=== PATIENT | male | born 1955 | race Two or more races ===

== ENCOUNTER → 2018-08-20 | Outpatient (CLI) | payer BC | END | disposition home or self-care (01) | LOC: SHCH 15:40 | PROVIDERS: ATTEND Internal Medicine Cardiovascular Disease | DX: I25.119 Atherosclerotic heart disease of native coronary artery with unspecified angina pectoris (principal) | CPT/HCPCS: 93306 ==

== ENCOUNTER → 2018-10-02 | Outpatient (CLI) | payer BC | END | disposition home or self-care (01) | LOC: RAH 08:32 | PROVIDERS: ATTEND Internal Medicine Cardiovascular Disease | DX: I25.10 Atherosclerotic heart disease of native coronary artery without angina pectoris (principal); I10 Essential (primary) hypertension | CPT/HCPCS: 78452; 93017; A9500 ×2 ==

== ENCOUNTER 2021-07-27 20:47 | Observation (INO) | payer BC, MEDICARE ==
[~2021-07-27] VITALS: Ht 165.1 cm; Wt 55.8 kg
[~2021-07-27 20:47] MED LIST: ASPI-1197 PO; ATOR40TA69 PO; CLOP75TA14 PO; METO-391 PO; PANT20TA PO
[2021-07-27 21:20] LABS: BASOPHILS % (AUTO) 0.4 % (0.0-5.0); HEMATOCRIT 42.5 % (42-54); LYMPHOCYTES % (AUTO) 27.6 % (21.0-51.0); MEAN CORPUSCULAR HEMOGLOBIN 29.7 pg (27.0-33.0); MEAN CORPUSCULAR HGB CONC 34.1 g/dL (32.0-36.0); MEAN CORPUSCULAR VOLUME 87.1 fL (79-99); NEUTROPHILS % (AUTO) 59.8 % (40.0-77.0); PLATELET COUNT (AUTO) 200 K/uL (130-400); RED BLOOD CELL COUNT(AUTO) 4.88 MIL/uL (4.50-6.20); RED CELL DISTRIBUTION WIDTH 11.9 % (11.0-15.5)
[2021-07-27] MEDS ORDERED: ASPIRIN 81MG CHEW TAB PO ONE (21:30)
[2021-07-27] MEDS ORDERED: NITROGLYCERIN 1GM OINT 1 INCH/1GM TD ONE (21:30)
[2021-07-27 21:32] LABS: PROTHROMBIN TIME 10.9 SEC (9.6-11.6)
[2021-07-27 21:34] LABS: PARTIAL THROMBOPLASTIN TIME 26.1 SEC (26.3-35.5)
[2021-07-27 21:37] LABS: B-TYPE NATRIURETIC PEPTIDE 16 pg/mL (0-100)
[2021-07-27 21:47] LABS: BILIRUBIN,TOTAL 0.7 mg/dL (0.2-1.0); CREATININE 0.9 mg/dL (0.5-1.5); POTASSIUM 4.3 mmol/L (3.5-5.1); TOTAL PROTEIN, SERUM 6.9 g/dL (6.0-8.3)
[2021-07-28] MEDS ORDERED: MAG/ALUM/SIMETH 30 ML UDCUP PO PRN (00:30)
[2021-07-28] MEDS ORDERED: ONDANSETRON 4MG INJ IV PRN (00:30)
[2021-07-28] MEDS ORDERED: LACTATED RINGERS 1000ML 1,000 ML IV SCH (00:30)
[2021-07-28] MEDS ORDERED: NITROGLYCERIN 0.4 MG SL TAB SL PRN (00:30)
[2021-07-28] MEDS ORDERED: LACTATED RINGERS 1000ML 1,000 ML IV ONE (00:49)
[2021-07-28 01:18] LABS: INR 1.01 (0.85-1.15)
[2021-07-28 01:20] LABS: PARTIAL THROMBOPLASTIN TIME 26.1 SEC (26.3-35.5)
[2021-07-28 02:15] VITALS: BP 123/77
[2021-07-28 04:00] VITALS: BP 122/74
[2021-07-28] MEDS ORDERED: SITA1TAB6 PO (06:24)
[2021-07-28 08:00] VITALS: BP 123/71
[2021-07-28] MEDS ORDERED: CLOPIDOGREL 75MG TAB PO SCH (10:00)
[2021-07-28] MEDS: METOPROLOL TARTRATE 25 MG TAB PO SCH ×2 (10:36→20:40)
[2021-07-28] MEDS: FAMOTIDINE 20MG VIAL IV SCH ×2 (10:37→20:40)
[2021-07-28 11:56] VITALS: BP 122/67
[2021-07-28] MEDS: ENOXAPARIN SODIUM 60 MG/0.6 ML SQ SCH ×2 (14:00→16:12)
[2021-07-28] MEDS ORDERED: ENOXAPARIN SODIUM 1 MG/KG SQ SCH (14:00)
[2021-07-28] MEDS ORDERED: ENOXAPARIN SODIUM 120 MG/0.8ML SQ SCH (14:00)
[2021-07-28] MEDS ORDERED: PRASUGREL HCL 10 MG TABLET PO SCH (14:00)
[2021-07-28 16:00] VITALS: BP 99/65
[2021-07-28] MEDS: INSULIN HUMULIN R 100 UNIT/ML 3ML SQ SCH ×2 (18:00→21:18)
[2021-07-28 20:00] VITALS: BP 133/78
[2021-07-29] VITALS (9 sets, daily range): BP systolic 114–141; BP diastolic 60–86
[2021-07-29] MEDS: INSULIN HUMULIN R 100 UNIT/ML 3ML SQ SCH ×3 (06:29→16:30)
[2021-07-29] MEDS ORDERED: ASPIRIN 81MG CHEW TAB PO SCH (07:11)
[2021-07-29] MEDS ORDERED: NITROGLYCERIN 50MG VIAL ONE (07:12)
[2021-07-29] MEDS ORDERED: SODIUM BICARB 50MEQ 50ML VIAL 50 ML ONE (07:12)
[2021-07-29] MEDS ORDERED: MIDAZOLAM HCL 1 MG/ML 2ML VIAL ONE ×2 (07:12→08:15)
[2021-07-29] MEDS ORDERED: IOHEXOL 350 MG/ML 100ML INFUS..BTL IV ONE (07:12)
[2021-07-29] MEDS ORDERED: HEPARIN 10,000 UNIT/10ML (1,000 UNIT/ML) VIAL ONE (07:12)
[2021-07-29] MEDS ORDERED: IOHEXOL-350 50ML VIAL IV ONE (07:12)
[2021-07-29] MEDS ORDERED: ASPIRIN 81MG CHEW TAB ONE (07:13)
[2021-07-29] MEDS ORDERED: MEPERIDINE-PF 25 MG/ML SYG ONE ×2 (07:13→08:15)
[2021-07-29] MEDS ORDERED: LIDOCAINE HCL 400MG/20ML VIAL ONE (07:13)
[2021-07-29] MEDS ORDERED: 0.9%NACL 1000ML 1,000 ML IV SCH (09:00)
[2021-07-29] MEDS ORDERED: ISOSORBIDE MONO 30MG SR TAB PO SCH (09:00)
[2021-07-29] MEDS ORDERED: METOPROLOL TARTRATE 25 MG TAB PO SCH (09:00)
[2021-07-29] MEDS ORDERED: PRASUGREL HCL 10 MG TABLET PO SCH (09:00)
[2021-07-29] MEDS ORDERED: ATORVASTATIN 10 MG TABLET PO SCH (09:00)
[2021-07-29] MEDS ORDERED: DILT180T12 PO (09:22)
[2021-07-29] MEDS ORDERED: METO25 PO (09:22)
[2021-07-29] MEDS ORDERED: PRAS10TA6 PO (09:22)
[2021-07-29] MEDS ORDERED: Isosorbide Mono 30MG Sr Tab PO (09:22)
[2021-07-29 10:52] LABS: HEMATOCRIT 38.6 % (42-54); MEAN CORPUSCULAR HEMOGLOBIN 29.8 pg (27.0-33.0); MEAN CORPUSCULAR HGB CONC 34.2 g/dL (32.0-36.0); MEAN CORPUSCULAR VOLUME 87.1 fL (79-99); RED BLOOD CELL COUNT(AUTO) 4.43 MIL/uL (4.50-6.20); RED CELL DISTRIBUTION WIDTH 11.9 % (11.0-15.5); WHITE BLOOD COUNT (AUTO) 5.6 K/uL (4.8-10.8)
[2021-07-29 11:09] LABS: CREATININE 0.8 mg/dL (0.5-1.5); POTASSIUM 4.6 mmol/L (3.5-5.1)
[2021-07-29] MEDS: DILTIAZEM 60MG TAB PO SCH ×2 (11:54→17:00)
== END 2021-07-29 19:00 | disposition home or self-care (01) ==
LOC: EDH 20:47 → INTOOBSV 07-28 00:21 → EDHIP 07-28 00:21 → 4DH 07-28 01:17
PROVIDERS: ADMIT Hospitalist; ATTEND Hospitalist
DX: I25.110 Atherosclerotic heart disease of native coronary artery with unstable angina pectoris (principal); Z20.822 Contact with and (suspected) exposure to COVID-19; E78.5 Hyperlipidemia, unspecified; E11.65 Type 2 diabetes mellitus with hyperglycemia; I10 Essential (primary) hypertension; I25.2 Old myocardial infarction; F32.A Depression, unspecified; F19.90 Other psychoactive substance use, unspecified, uncomplicated; Z79.02 Long term (current) use of antithrombotics/antiplatelets; Z79.82 Long term (current) use of aspirin; Z79.899 Other long term (current) drug therapy
CPT/HCPCS: 36415 ×3; 71045; 80048; 80053; 82550; 82948 ×8; 83735; 83880; 84484 ×4; 85025; 85027; 85378; 85610 ×2; 85730 ×2; 93005; 93458; 96372; 96374; 96376; 99285; C1760; C1894; G0378 ×43; J1644; J1650; J1815; J2175 ×2; J2250 ×2; J3490 ×5; J7120; Q9965; Q9967 ×2; 99156; 99157

== ENCOUNTER 2022-04-29 09:32 | Observation (INO) | payer BC, MEDICARE ==
[2022-04-28 14:38] LABS: BASOPHILS % (AUTO) 0.5 % (0.0-5.0); EOSINOPHILS % (AUTO) 1.5 % (0.0-8.0); HEMATOCRIT 42.9 % (42-54); LYMPHOCYTES % (AUTO) 31.5 % (21.0-51.0); MEAN CORPUSCULAR HEMOGLOBIN 29.3 pg (27.0-33.0); MEAN CORPUSCULAR HGB CONC 33.6 g/dL (32.0-36.0); MEAN CORPUSCULAR VOLUME 87.4 fL (79-99); MONOCYTES % (AUTO) 9.1 % (3.0-13.0); NEUTROPHILS % (AUTO) 57.2 % (40.0-77.0); PLATELET COUNT (AUTO) 199 K/uL (130-400); RED BLOOD CELL COUNT(AUTO) 4.91 MIL/uL (4.50-6.20); RED CELL DISTRIBUTION WIDTH 13.1 % (11.0-15.5); WHITE BLOOD COUNT (AUTO) 5.5 K/uL (4.8-10.8)
[2022-04-28 14:45] VITALS: BP 127/77
[2022-04-28 14:45] LABS: POTASSIUM 4.7 mmol/L (3.5-5.1)
[2022-04-28 14:48] LABS: INR 1.05 (0.85-1.15); PROTHROMBIN TIME 11.4 SEC (9.6-11.6)
[2022-04-28 14:49] LABS: PARTIAL THROMBOPLASTIN TIME 26.1 SEC (26.3-35.5)
[2022-04-28 14:50] LABS: APPEARANCE,URINE CLEAR (CLEAR); BILIRUBIN,URINE NEGATIVE (NEGATIVE); COLOR,URINE LIGHT-YELLOW (YELLOW); GLUCOSE, URINE (UA) >=1000 mg/dL (NEGATIVE); KETONES,URINE NEGATIVE (NEGATIVE); LEUKOCYTE ESTERASE ,URINE NEGATIVE Leu/uL (NEGATIVE); NITRATE,URINE NEGATIVE (NEGATIVE); OCCULT BLOOD,URINE NEGATIVE (NEGATIVE); PH,URINE 5.5 (5.0-8.0); PROTEIN,URINE NEGATIVE (NEGATIVE); UROBILINOGEN,URINE 0.2 mg/dL (0.2-1.0)
[2022-04-28 14:54] LABS: BACTERIA,URINE RARE /HPF (None Seen); WBC,URINE 0-1 /HPF (0-1)
[2022-04-28 15:01] LABS: B-TYPE NATRIURETIC PEPTIDE 14 pg/mL (0-100)
[~2022-04-29] VITALS: Ht 165.1 cm; Wt 51.3 kg
[~2022-04-29 09:32] MED LIST changes: +AEC81 PO; -ASPI-1197 PO; +CANA300T PO; -CLOP75TA14 PO; +DILT180C86 PO; +ISOS30TA92 PO; -PANT20TA PO; +PANT40TA55 PO; +PRAS10TA9 PO; +SITA1TAB6 PO
[2022-04-29 11:11] VITALS: BP 106/63
[2022-04-29] MEDS ORDERED: 0.9%NACL 1000ML 1,000 ML IV ONE (11:18)
[2022-04-29] MEDS ORDERED: DEXTROSE 50%-WATER 50 ML DISP.SYRIN IV ONE (14:04)
[2022-04-29] MEDS ORDERED: NITROGLYCERIN 50MG VIAL ONE (16:30)
[2022-04-29] MEDS ORDERED: HEPARIN 10,000 UNIT/10ML (1,000 UNIT/ML) VIAL ONE (16:30)
[2022-04-29] MEDS ORDERED: SODIUM BICARB 50MEQ 50ML VIAL 50 ML ONE (16:30)
[2022-04-29] MEDS ORDERED: MEPERIDINE-PF 25 MG/ML SYG ONE ×2 (16:30→16:55)
[2022-04-29] MEDS ORDERED: LIDOCAINE HCL 1% 20 ML VIAL ONE (16:30)
[2022-04-29] MEDS ORDERED: IOHEXOL 350 MG/ML 100ML INFUS..BTL IV ONE (16:30)
[2022-04-29] MEDS ORDERED: MIDAZOLAM HCL 1 MG/ML 2ML VIAL ONE ×2 (16:31→16:55)
[2022-04-29] MEDS ORDERED: 0.9%NACL 1000ML 1,000 ML IV SCH (18:30)
[2022-04-29] MEDS ORDERED: NITROGLYCERIN 50MG/D5W 250ML 1 BOT IV PRN (18:30)
[2022-04-29] MEDS ORDERED: ONDANSETRON 4MG INJ IVP PRN (18:30)
[2022-04-29] MEDS ORDERED: TEMAZEPAM 30 MG CAP PO PRN (18:30)
[2022-04-29] MEDS ORDERED: ACETAMINOPHEN WITH CODEINE 1 TAB TAB PO PRN ×2 (18:30)
[2022-04-29 19:00] VITALS: BP 115/66
[2022-04-29 20:00] VITALS: BP 128/67
[2022-04-29 21:00] VITALS: BP 116/72
[2022-04-29] MEDS ORDERED: ATORVASTATIN 40 MG TABLET PO SCH (21:00)
[2022-04-29] MEDS ORDERED: DILTIAZEM 180MG SR CAP PO SCH (21:00)
[2022-04-29] MEDS ORDERED: ISOSORBIDE MONO 30MG SR TAB PO SCH (21:00)
[2022-04-29 22:00] VITALS: BP 123/66
[2022-04-29 23:00] VITALS: BP 108/66
[2022-04-30] VITALS (13 sets, daily range): BP systolic 91–133; BP diastolic 47–87
[2022-04-30 03:55] LABS: HEMATOCRIT 37.3 % (42-54); MEAN CORPUSCULAR HGB CONC 33.2 g/dL (32.0-36.0); MEAN CORPUSCULAR VOLUME 87.1 fL (79-99); RED BLOOD CELL COUNT(AUTO) 4.28 MIL/uL (4.50-6.20); WHITE BLOOD COUNT (AUTO) 6.7 K/uL (4.8-10.8)
[2022-04-30 04:09] LABS: CREATININE 0.9 mg/dL (0.5-1.5); POTASSIUM 3.8 mmol/L (3.5-5.1)
[2022-04-30] MEDS ORDERED: ASPIRIN 81 MG EC TAB PO SCH (09:00)
[2022-04-30] MEDS ORDERED: Janumet 50-1,000 mg PO SCH (09:00)
[2022-04-30] MEDS ORDERED: PRASUGREL HCL 10 MG TABLET PO SCH (09:00)
[2022-04-30] MEDS ORDERED: PANTOPRAZOLE 40 MG TAB DR PO SCH (09:00)
[2022-04-30] MEDS ORDERED: METOPROLOL SUCCINATE 50 MG TAB.SR.24H PO SCH (09:00)
[2022-04-30] MEDS ORDERED: BISACODYL 10 MG SUPP.RECT RC SCH (11:00)
[2022-04-30] MEDS ORDERED: INSULIN HUMULIN R 100 UNIT/ML 3ML SQ SCH (11:30)
[2022-05-03] MEDS ORDERED: RANO500T2 PO (13:48)
== END 2022-04-30 13:25 | disposition home or self-care (01) ==
LOC: DAH 09:32 → DAHIP 18:03 → 2BH 19:41
PROVIDERS: ADMIT Internal Medicine; ATTEND Internal Medicine
DX: I25.119 Atherosclerotic heart disease of native coronary artery with unspecified angina pectoris (principal); E78.5 Hyperlipidemia, unspecified; E11.9 Type 2 diabetes mellitus without complications; Z79.899 Other long term (current) drug therapy
CPT/HCPCS: 80048 ×2; 83880; 85025; 85610; 85730; 81001; 36415 ×2; 71045; 93005 ×2; 92978; 93458; 82948 ×6; 83735; 85027; C1769; C1887; C1894; C1760; C1753; C1874; C1725; Q9965; G0378 ×19; J7030 ×2; J3490 ×2; J7070; J1644 ×3; J2250 ×2; J2175 ×2; Q9967; A4215; A4223 ×3; A4222; A4221; A4663; A4216; A4606; C9600; 99156; 99157

== ENCOUNTER → 2023-02-20 | Outpatient (CLI) | payer BC, MEDICARE ==
[~2023-02-20] MED LIST changes: +DILT180C77 PO; -DILT180C86 PO; +GADOTERATE MEGLUMINE 5 MMOL/10 ML VIAL IV ONE; +RANO10003 PO
== END | disposition home or self-care (01) ==
LOC: RAH 07:48
PROVIDERS: ATTEND Family Medicine
DX: M47.815 Spondylosis without myelopathy or radiculopathy, thoracolumbar region (principal); M48.061 Spinal stenosis, lumbar region without neurogenic claudication; M51.26 Other intervertebral disc displacement, lumbar region
CPT/HCPCS: 72158; A9575